=== PATIENT | female | born 1985 | race Caucasian/White ===

== ENCOUNTER 2016-09-12 10:32 | Day surgery (SDC) | payer MEDICAID ==
[2016-09-12] VITALS (28 sets, daily range): BP systolic 103–131; BP diastolic 59–79; PULSE 76–105; RESP 10–24; TEMP 97.8–98.8; O2SAT 95–100; Ht 175.3 cm; Wt 103.0 kg
[~2016-09-12] VITALS: Ht 175.3 cm; Wt 103.0 kg
[~2016-09-12 10:32] MED LIST: ALPR1TAB2 PO; BUSP10TA3 PO; CARI350T26 PO; ETON68IM3 IL; HYDR25TA PO; LIDOCAINE 1% (10mg/ml) 2ml SDV INJ ONE; LR 1,000 ML IV SCH; METF500T4 PO; VENL-68 PO; VENL-69 PO; ZOLP10TA2 PO
--- OUTSIDE RECORDS SUMMARY | 2016-09-12 10:35 | XMS REPORT | Continuity of Care Document ---
Author Author [facility] Organization [facility] Address Unknown Phone Unavailable Support Name Relationship Address Phone JANET MAC MD Caregiver [address] [place] [address] [place] [address] Unavailable KEVIN ORTIZ MD Caregiver [address] [place] [address] Unavailable TOMEKA GREEN Next Of Kin [address], [place] [address] Insurance Providers Guarantor Fidelia Pierson Address [address] [place] [address] Email [email or web address] Payer [facility] Community Plan Policy Number [id number] Subscriber's Name TerrenceelianaFidelia Judi Relationship 18 Self Effective Date 16 Expiration Date 16 Advance Directives Directive Response Recorded Date/Time Ordered Resuscitation Status Full Code 07/07/16 1:22pm Resuscitation Documents on File No 07/08/16 8:54am DPOA for Healthcare Only No 07/08/16 8:54am Living Will No 07/08/16 8:54am Problems No problem information available. Medications Current Home Medications Medication Dose Units Route Directions Days Qty Instructions Start Date Alprazolam (Xanax) 1 Mg Tablet 1 Mg Oral Twice A Day as needed for Anxiety 07/07/16 Buspirone Hcl 10 Mg Tablet 1 Tab Oral Six Times A Day 180 07/07/16 Etonogestrel (Nexplanon) 68 Mg Implant 68 Mg Implant 07/07/16 Venlafaxine Hcl (Venlafaxine Hcl Er) 75 Mg Cap.er.24h 1 Cap Oral Three Times A Day 15 07/07/16 Zolpidem Tartrate 10 Mg Tablet 1 Tab Oral Bedtime 30 07/07/16 Social History Social History Problem Response Recorded Date/Time Onset Date Status Reason for Hospitalization COLONOSCOPY 07/08/2016 12:49pm Not Applicable Not Applicable Chewing Tobacco Status No 07/08/2016 8:59am Not Applicable Not Applicable Hx Substance Use No 07/08/2016 8:59am Not Applicable Not Applicable Hx Alcohol Use No 07/08/2016 8:59am Not Applicable Not Applicable Has the pt used tobacco in the last 12 months No 07/08/2016 8:59am Not Applicable Not Applicable Query Response Start Date Stop Date Smoking Status Former smoker Hospital Discharge Instructions Instructions: Care Instructions: I was in the hospital because (patient own words): COLONOSOPY Discharge Diet: Resume previous diet Discharge Activity: Restricted today, as tolerated tomorrow. Follow Up Appointments: None Pending Lab / Results: No Pending Lab Expected Signs/Symptoms: None Notify Physician If: Severe abdominal pain. During Business Hours:: Please call the physician's office at [phone] and choose option 2. After Business Hours:: Please call [phone] and have the buttermilk drier operator page Dr. Mac. Pain Management/Treatment: N/A Wound/Incision Care: N/A Condition at time of discharge: Good Plan of Care Discharge Date 07/08/16 1:34pm Instructions/Education Provided [facility] [place] Prescriptions See Medication Section Functional Status Query Response Date Recorded Ability to complete ADL's impeded by No change July 08, 2016 8:54am Allergies, Adverse Reactions, Alerts Allergen Type Severity Reaction Status Last Updated No Known Drug Allergies Allergy Unknown Active 07/08/16 Immunizations Query Response on File Recorded Date/Time Hx Influenza Vaccination Y MAR 2016 07/08/16 8:59am Hx Pneumococcal Vaccination No 07/08/16 8:59am Hx Influenza Vaccination Y MAR 2016 07/08/16 8:59am Vital Signs Acute Vital Signs Vital Response Date/Time Temperature (Fahrenheit) 98.5 deg F (96.8 - 99.1) 07/08/2016 12:30pm Temperature (Calculated Celsius) 36.93952 degrees C (36.0 - 37.3) 07/08/2016 12:30pm Temperature Source Oral 07/08/2016 12:30pm Pulse Rate (adult) 68 bpm (60 - 100) 07/08/2016 1:01pm Respiratory Rate 16 breaths/min (10 - 20) 07/08/2016 1:01pm O2 Sat by Pulse Oximetry 94 % (90 - 100) 07/08/2016 1:01pm Oxygen Delivery Method Room Air 07/08/2016 1:01pm Oxygen Flow Rate 5.00 L/min 07/08/2016 12:30pm Blood Pressure 108/61 mm Hg 07/08/2016 1:01pm Blood Pressure Source Automatic Cuff 07/08/2016 1:01pm Height (Feet) 5 feet 07/08/2016 8:39am Height (Inches) 9.00 inches 07/08/2016 8:39am Weight (Kilograms) 97.000 kg 07/08/2016 8:39am Body Mass Index (BMI) 31.6 07/08/2016 8:39am Results No known relevant diagnostic tests, laboratory data and/or discharge summary. Procedures Procedure Status Date Provider(s) Colonoscopy Completed 07/08/16 JANET MAC MD Encounters Encounter Location Arrival/Admit Date Discharge/Depart Date Attending Provider Departed [facility] 07/08/16 8:23am 07/08/16 1: 34pm JANET MAC MD
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
[2016-09-12] MEDS ORDERED: BUPIVACAINE 0.25% (2.5mg/ml) INJ 30ml SDV ONE (11:50)
[2016-09-12] MEDS ORDERED: SALINE FLUSH 10ml SYRINGE ONE (11:50)
[2016-09-12] MEDS: MIDAZOLAM 2mg/2ml INJECTION IV PRN ×2 (11:59→12:07)
--- NOTE | 2016-09-12 12:23 | ANESPREOP ---
Anesthesia Record Date and Time DATE: 09/12/16 TIME: 12:21 Pre-Op Diagnosis chronic cholecystitis Proposed Surgical Procedure ROBOTIC LAP MEHDI Allergies: Coded Allergies: No Known Drug Allergies (Verified Allergy, Unknown, 09/12/16) Ht/Wt/BMI Height: 5 ' 9.00 " Weight: 97.800 kg BMI: 31.8 kg/m2 Vital Signs Date Time Temp Pulse Resp B/P Pulse Ox O2 Delivery O2 Flow Rate FiO2 09/12/16 12:15 79 13 122/61 98 Room Air 09/12/16 11:21 98.8 Medications Inpatient Medications Current Medications Medications (Trade) Dose Ordered Sig/Rusty Start Time Stop Time Status Last Admin Dose Admin Lactated Ringer's (Lactated Ringers) 1,000 ml @ 50 mls/hr Q20H 09/12/16 07:00 09/12/16 11:49 50 MLS/HR Midazolam HCl (Versed) VERSED 1-2 MG IV PRN ANXIETY PRN PRN 09/12/16 11:45 09/12/16 12:07 1 MG Alprazolam (Xanax) 1 Mg Tablet, 1 MG PO BID PRN for ANXIETY, (Reported) Last Taken: on Unknown Date & Time Buspirone HCl (Buspirone HCl) 10 Mg Tablet, 1 TAB PO 6XD, (Reported) Last Taken: on 09/11/16 0800 Carisoprodol (Carisoprodol) 350 Mg Tablet, 1 TAB PO DAILY PRN for MUSCLE PAIN, (Reported) Last Taken: on Unknown Date & Time Etonogestrel (Nexplanon) 68 Mg Implant, 68 MG IL, (Reported) Last Taken: on Unknown Date & Time Hydrochlorothiazide (Hydrochlorothiazide ) 25 Mg Tablet, 1 TAB PO DAILY, (Reported) Last Taken: on 09/11/16 0800 Metformin HCl (Metformin HCl) 500 Mg Tablet, 1 TAB PO DAILY, (Reported) Last Taken: on 09/11/16 0800 Venlafaxine HCl (Venlafaxine HCl ER) 75 Mg Cap.er.24h, 1 CAP PO TID, (Reported) Last Taken: on 09/11/16 0800 Venlafaxine HCl (Venlafaxine HCl ER) 150 Mg Cap.er.24h, 1 TAB PO DAILY, (Reported) Last Taken: on 09/11/16 0800 Zolpidem Tartrate (Ambien) 10 Mg Tablet, 10 MG PO HS, (Reported) Take 1 tablet, by mouth, 1 time a day (at BEDTIME). Last Taken: on 09/11/16 2200 Currently on Beta Gene: No Medical/Surgical History Anesthesia PMH: Reports: Anxiety, Depression, Obesity, Reflux, Denies: * Diabetes, Anesthesia Reactions (NO AIRWAY ISSUES), Arthritis, Cancer, Clotting Problems, Glaucoma, Malignant Hyperthermia, Renal Disease, Sleep Apnea, Thyroid Disease Smoking Status: Never smoker Has pt. smoked today?: No # of Packs per Day: 1 # of Years: 13 Use Chewing Tobacco?: No Second Hand Exposure: No Substance Use Type: does not use Alcohol Intake: none HX of Last Menstrual Period: UNKNOWN Past Surgical History Orthopedic Surgeries: Yes - R ANKLE REPAIR Abdominal Surgeries: Genitourinary Surgeries: Cardiac Surgeries: Endocrine Surgeries: Reproductive Surgeries: Yes - LAPAROSCOPY Neurological Surgeries: Ear Surgeries: Nose Surgeries: Throat Surgeries: Other Surgeries: Yes - R BREAST CYST REMOVAL,COLONOSCOPY Anesthesia Adverse Reactions: FOUND none Hx of Motion Sickness: No Pertinent Findings Test 09/12/16 10:48 Urine Test Negative (NEGATIVE) EKG Rhythm: Sinus Rhythm Physical Exam Respiratory: Bilat breath sounds equal, Lungs clear Cardiovascular: FOUND Regular rate, rhythm, FOUND No murmur Airway Assessment Mallampati Score: II TMD: 2 Fingerbreadths Neck Extension: Fair Overall Assessment: No Airway Concerns ASA: 2 Plan Anesthesia Plan: GETA Discussion Discussed risks/options/alternatives of anesthesia and questions answered. Patient consents. Nursing pain assessment noted. Present: Spouse Attestation Statement Prior to the delivery of any anesthetic medication, I examined the patient, developed the plan, obtained the patient's consent and discussed the risk and benefits of the procedure with the patient/guardian. JESUS HESS CRNA Sep 12, 2016 12:23
[2016-09-12] MEDS ORDERED: ROCURONIUM 50mg/5ml INJECTION IV ONE ×3 (12:29→14:51)
[2016-09-12] MEDS ORDERED: PROPOFOL 200mg 20 ML IV ONE ×2 (12:29→15:24)
[2016-09-12] MEDS ORDERED: LIDOCAINE 2% (20mg/ml) 5ml PF SDV ONE (12:29)
[2016-09-12] MEDS ORDERED: FENTANYL 250mcg/5ml INJECTION ONE (12:30)
[2016-09-12] MEDS ORDERED: DESFLURANE 240 ML LIQUID IH ONE (12:40)
[2016-09-12] MEDS ORDERED: CEFAZOLIN 1 GRAM INJECTION IV ONE (12:45)
[2016-09-12] MEDS ORDERED: ONDANSETRON 4mg/2ml INJECTION ONE (12:53)
[2016-09-12] MEDS ORDERED: GLYCOPYRROLATE 0.4mg/2ml INJECTION ONE (12:53)
[2016-09-12] MEDS ORDERED: IOHEXOL 300 MG/ML 50ml INJECTION ONE (14:30)
[2016-09-12] MEDS ORDERED: HYDROMORPHONE 2mg/ml INJECTION ONE (14:55)
--- NOTE | 2016-09-12 15:04 | DI ---
Indication: ITS.REASON: ROBOTIC MEHDI PROCEDURE: RF CHOLANGIOGRAM OPERATIVE: Comparison: None Findings: 3 fluoroscopic spot images are submitted from an intraoperative cholangiogram. Images demonstrate injection of contrast into the cystic duct with filling of the common duct and intrahepatic biliary tree. No discrete filling defects are identified. Contrast flows into the duodenum. Impression: Intraoperative fluoroscopy as above. Please refer to the dictated operative note for further details. Fluoroscopy time is 19.7 seconds. Fluoroscopy dose is 416 mRad. .
[2016-09-12] MEDS ORDERED: SUGAMMADEX 200 MG/2 ML INJECTION IV ONE (15:09)
[2016-09-12] MEDS ORDERED: HYDROMORPHONE 2mg/ml INJECTION IV PRN (15:45)
[2016-09-12] MEDS ORDERED: ONDANSETRON 4mg/2ml INJECTION IV PRN ×2 (15:45→16:15)
--- NOTE | 2016-09-12 16:06 | GSPOSTPROC ---
Immediate Operative Note DATE: 09/12/16 TIME: 16:04 Postop Diagnosis: Chronic cholecystitis Surgical Procedure: Other (Multiport robotic laparoscopic cholecystectomy) Surgeon: Brandi ASA: 2 JANET AMC MD Sep 12, 2016 16:06
[2016-09-12] MEDS ORDERED: PROMETHAZINE 25 MG INJECTION IV PRN (16:15)
--- NOTE | 2016-09-12 16:22 | ANESPO ---
Post-Op Note Date 09/12/16 Time: 16:21 Status Pt Participated in Evaluation: Pt participated in person Vital Signs Date Time Temp Pulse Resp B/P Pulse Ox O2 Delivery O2 Flow Rate FiO2 09/12/16 16:11 20 09/12/16 16:04 98.3 105 116/73 100 Mask 6.00 Respiratory Function: Airway patent Telemetry Pattern: SR Mental Status: Alert/oriented Pain Level Intensity: 4 Hydration: IV infusing Complications during Recovery None apparent Follow-Up Instructions Instructions Per Surgeon BENJAMIN BELL KITCHEN AND COUNTER WORKER Sep 12, 2016 16:22
--- NOTE | 2016-09-12 16:45 | NUR ---
ARRIVAL PT TO ROOM 132 PER CART. PT TRANSFERRED SELF FROM CART TO BED. VS STABLE 4 LAP SITES COVERED BY BANDAIDS, 1 COVERED AT UMBILICUS WITH FOAM TAPE, AND DRAIN SITE COVERED BY FOAM TAPE. SOME SHADOWING NOTED BUT CIRCLED BY PACU STAFF. PT RATES PAIN AT 8/10 IN ABD AND HEAD. PRN MORPHINE AND IBUPROFEN TO BE GIVEN. PT RESTING IN BED WITH ALARM. CALL LIGHT WITHIN REACH. WILL CONTINUE TO MONITOR.
[2016-09-12] MEDS: MORPHINE SULFATE 10 MG SYRINGE IV PRN (16:59)
[2016-09-12] MEDS: IBUPROFEN 200 MG TABLET PO PRN (17:00)
[2016-09-12] MEDS ORDERED: ALPRAZOLAM 1 MG TABLET PO PRN (18:00)
--- NOTE | 2016-09-12 18:26 | NUR ---
STATUS PT A/O X3. PT HAS YET TO GET UP, DENIES NEED TO URINATE AT THIS TIME. PAIN IS CONTROLLED, NAUSEA CONTROLLED. PRN PAIN MEDICATIONS AND PRN ZOFRAN GIVEN DOCUMENTED. PT TOLERATING WATER AND CRACKERS AT THIS TIME. DENIES NEED FOR XANAX BUT MADE PT AWARE THAT IT IS AVAILABLE IF NEEDED. VS STABLE. BED ALARM ON. PT RESTING IN BED. WILL CONTINUE TO MONITOR.
[2016-09-12] MEDS: OXYCODONE I.R. 5 MG TABLET PO PRN ×2 (18:47→21:56)
[2016-09-12] MEDS: LR 1,000 ML IV SCH (19:03)
[2016-09-12] MEDS: ACETAMINOPHEN 500 MG TABLET PO PRN (21:13)
[2016-09-13] VITALS: BP 122/70; PULSE 84; RESP 18; TEMP 98.8; O2SAT 95
[2016-09-13] MEDS: MORPHINE SULFATE 10 MG SYRINGE IV PRN ×3 (00:20→13:20)
[2016-09-13] MEDS: OXYCODONE I.R. 5 MG TABLET PO PRN ×6 (01:18→18:03)
[2016-09-13 04:42] VITALS: BP 102/63; PULSE 73; RESP 14; O2SAT 93
[2016-09-13] MEDS: LR 1,000 ML IV SCH ×2 (05:26→09:53)
--- NOTE | 2016-09-13 06:59 | NUR ---
PRN: Pt c/o increased anxiety. Pt requesting PRN Med to help with anxiety. Pt states she has a history of anxiety and she is "scared to fall asleep." PRN Xanax administered as charted. Notified oncoming RNCarlton.
--- NOTE | 2016-09-13 07:54 | NUR ---
SHIFT SUMMARY 1899 Report received in SBAR. All cares assumed. Assessment complete. See flowsheet. Pt is pleasant, alert et oriented. Noted drainage around MUSA drain to RMQ, serous sang. Will cont to empty et monitor. 194 Pt Pain 9/10 Patria 5 mg 2 tabs PO. Will cont to monitor 2256 Patria 5 mg 2 tabs PO for pain scale 10/10. See EMAR for follow up. 0020 Morphine 3 mg IV for pain 10/10. Pt gown et linens wet from leaking around MUSA drain. Pt cleaned disposable pad to area. Will cont to monitor. 0218 Patria 5 mg 2 tabs PO pain 9/10. 0248 Follow up pain scale pt states her pain is 8/10 and so she doesn't feel that she needs anything. 8 is the low end of pt pain scale. 0538 Patria 5 mg 2 tabs PO pain 9/10. 0700 Report given in SBAR. All cares resigned.
[2016-09-13] MEDS ORDERED: HYDROCHLOROTHIAZIDE 25 MG TABLET PO SCH (08:00)
[2016-09-13 08:23] VITALS: BP 100/64; PULSE 75; RESP 16; TEMP 97; O2SAT 95
[2016-09-13] MEDS ORDERED: VENLAFAXINE XR 150 MG CAPSULE PO SCH (09:00)
--- NOTE | 2016-09-13 10:58 | NUR ---
CM CM IN TO VISIT WITH PT. SHE IS ALERT AND ORIENTED. SHE WAS WITNESSED BY THIS CM TO AMBULATE WITH STAND BY ASSIST. HER SPUYES IS PRESENT. PT PLANS TO RETURN HOME. SHE DENIES DC NEEDS. HER LACE SCORE IS 1. NO FURTHER INTERVENTION NEEDED. SHE IS GIVEN CM CONTACT INFORMATION. Addendum: 09/13/16 at 1059 by SAL FERNANDEZ RN Amended: Links added.
[2016-09-13 11:41] VITALS: BP 102/62; PULSE 87; RESP 18; TEMP 96.5; O2SAT 100
[2016-09-13] MEDS: IBUPROFEN 200 MG TABLET PO PRN (11:52)
--- NOTE | 2016-09-13 12:51 | OPNOTEF ---
DATE OF OPERATION 09/12/2016 PREOPERATIVE DIAGNOSIS Chronic cholecystitis and cholelithiasis. POSTOPERATIVE DIAGNOSIS Chronic cholecystitis and cholelithiasis. OPERATION Multiport robotic laparoscopic cholecystectomy with intraoperative cholangiograms. SURGEON Renato Paz MD [employer] Jax Cooley MD ANESTHESIA General. ASA CLASS 2 FINDINGS The gallbladder appeared be to chronically inflamed. There were a lot of adhesions around the outside surface of the gallbladder. The gallbladder contained multiple large gallstones. The liver appeared normal. Intraoperative cholangiograms performed at the time of operation appeared normal. DESCRIPTION OF OPERATION The patient did have injectable indocyanine green dye administered intravenously preoperatively. The patient was placed in the supine position on the operating table. General anesthesia was satisfactorily induced. The abdomen was prepped and draped in a routine sterile fashion. Bupivacaine 0.25% without epinephrine was infiltrated into the skin and underlying tissue at an infraumbilical incision site. An infraumbilical incision was made. A Veress needle was inserted into the peritoneal cavity through the incision. Pneumoperitoneum was established with carbon dioxide. The Veress needle was removed. A 12-mm da Héctor camera port was placed at the infraumbilical incision. A 12-mm, 30 degree da Héctor laparoscope was inserted at the infraumbilical port. The skin and underlying structures at the abdominal wall were infiltrated with bupivacaine at a port site at the left upper quadrant of the abdomen at the midclavicular line. An incision was made at this site and an 8-mm da Héctor instrument port was placed at this incision. The skin and underlying abdominal wall structures were infiltrated with bupivacaine at another incision site at the left side of the abdomen. An incision was made at this site and an [employer] administrative assistant data entry port was placed at this incision. The skin and underlying abdominal wall structures were infiltrated with bupivacaine at a port site at the right upper quadrant of the abdomen. An incision was made at this area, and an 8-mm da Héctor instrument port was placed at this incision. The skin and underlying abdominal wall structures were infiltrated with bupivacaine at another port site at a more lateral location at the right side of the abdomen. An incision was made at this site and another 8-mm da Héctor instrument port was placed at this incision. The patient was placed in reverse Trendelenburg position. The right side of the table was tilted up. The da Héctor robotic system was brought up to the operating table. The da Héctor robotic system was docked to the camera port and instrument ports. The da Héctor 12-mm, 30-degree laparoscope was inserted at the camera port. The [place] bipolar forceps was inserted at the 8-mm instrument port at the left upper quadrant of the abdomen associated with instrument arm #1. A Cadiere forceps was inserted at the 8-mm instrument port at the right upper quadrant of the abdomen associated with instrument arm #2. A Prograf forceps was inserted at the 8-mm instrument port at the right lateral location at the abdomen associated with instrument arm #1. These instruments were all placed into a position adjacent to the gallbladder. The surgeon then went from the patient's side at the operating table to the surgeon console. The Prograf forceps with instrument arm #3 was used to grasp the fundus of the gallbladder and elevate the gallbladder and reflect the liver up superiorly towards the right diaphragm. The infundibulum of the gallbladder was grasped with the Cadiere forceps with instrument arm #2. Dissection was performed to separate the fatty tissue which was adherent to the outside surface of the gallbladder. There were a lot of adhesions binding fatty tissue to the outside surface of the gallbladder. These were divided to establish a dissection plane immediately on the outside surface of the gallbladder. Then dissection was performed to dissect all this tissue off the surface of the gallbladder from the fundus of the gallbladder down toward the infundibulum of the gallbladder. The patient did have a very long gallbladder which was over two times as long as usual. Tissue was dissected free of the outside surface of the fundus and then dissected free of the outside surface of the infundibulum of the gallbladder. The cystic artery was dissected out and identified during this time. Dissection was extended all the way down to the junction of the cystic duct and infundibulum of the gallbladder. The cystic duct was dissected out. Dr. Cooley was asked to come to the operating room at this time to help confirm the appearance of the anatomy and to assist with performing some intraoperative cholangiograms. Dr. Cooley did scrub in at this point and assist with the operation. The curved dissecting scissors was used to create an opening at the junction of the gallbladder and the cystic duct. Instrument arm #1 was then undocked from the port at the left upper quadrant of the abdomen. Dr. Cooley did introduce a cholangiogram catheter through this port at the left upper quadrant of the abdomen and cannulated the cystic duct with this catheter. The da Héctor robotic system was then undocked from the camera port. This did allow a C-arm to be brought in from the left side of the operating table to perform intraoperative cholangiograms. Intraoperative cholangiograms were performed with the use of the C-arm. The intraoperative cholangiograms were reviewed during this time that they were being performed. The intraoperative cholangiograms appeared normal. There was good free flow of contrast material from the common duct into the duodenum. There were no filling defects anywhere within the biliary tree. The intraoperative cholangiograms had a normal appearance. The cystic duct was decannulated. The intraoperative cholangiogram catheter was removed. The da Héctor robotic system was docked to the camera port again. Instrument arm #1 was docked to the instrument port at the left upper quadrant of the abdomen. The entire infundibulum of the gallbladder had been dissected free of the gallbladder bed prior to the time that the cystic duct was dissected out and the intraoperative cholangiograms were performed. The only two structures remaining at the hepatocystic triangle were the cystic duct and the cystic artery. The hepatocystic triangle had been cleared of all fatty and fibrous tissue until the only two structures remaining were the cystic duct and the cystic artery. In addition to this, the gallbladder had been dissected out of the gallbladder bed at least custodial up the gallbladder bed so that the entire infundibulum of the gallbladder was dissected out of the gallbladder bed and only the fundus remained attached to the gallbladder bed. Two Hem-o-candace clips were applied to the cystic duct proximal to the opening which had been created at the junction of the cystic duct in the gallbladder. Another Hem-o-Candace clip was applied across the infundibulum of the gallbladder adjacent to the cystic duct. The cystic duct was divided between Hem-o-candace clips with curved dissecting scissors. Two of the Hem-o-candace clips were left in place on the cystic duct stump. Two of the Hem-o-candace clips were then applied to the cystic artery. The cystic artery was divided between Hem-o-candace clips with the monopolar curved scissors. The monopolar curved scissors were then used to dissect the fundus of the gallbladder out of the gallbladder bed. This was the only portion of the gallbladder bed which remained attached to the gallbladder bed yet at this time. Tissue was coagulated with the monopolar curved scissors as the fundus of the gallbladder was dissected out of the gallbladder bed to maintain hemostasis. The gallbladder was completely dissected out of the gallbladder bed. Hemostasis was satisfactory at the gallbladder bed. Irrigation was performed at the gallbladder bed and hemostasis appeared to be satisfactory everywhere throughout the gallbladder bed. The gallbladder was placed in a position in the peritoneal cavity along the margin of the liver. The instruments were then removed from the instrument ports. The da Héctor laparoscope was removed from the camera port. The da Héctor robotic system was undocked from the ports. The surgeon left the surgeon console and returned back to the side of the patient at the operating table. The da Héctor 8.5 mm, 30-degree laparoscope was inserted at one of the right-sided da Héctor instrument ports. The specimen retrieval pouch was inserted at the camera port. The gallbladder was placed in the specimen retrieval pouch. The specimen retrieval pouch containing the gallbladder was brought out through the infraumbilical incision. The gallbladder was submitted as a specimen for study by the pathologist. Bupivacaine 0.25% without epinephrine was used to infiltrate skin and underlying abdominal wall structures at a site at the right upper quadrant of the abdomen at the right subcostal area. An incision was made at this site. A 5-mm port was placed at this site. A 19-Scottish round Bard channel drain was introduced through this 5-mm port into the peritoneal cavity. The 8.5-mm da Héctor laparoscope remained inserted at one of the right-sided da Héctor instrument ports. The Bard channel drain was placed into a subhepatic position at the gallbladder bed at this time. The 5-mm port at the right upper quadrant was removed leaving the Bard channel drain in place at the subhepatic space at the gallbladder bed. The 19-Scottish Bard channel drain was secured to the skin was with 2-0 Prolene suture. This did leave a drain at the gallbladder bed. The instrument ports were then all removed. Carbon dioxide was removed from the peritoneal cavity by desufflation. The fascial layer of the infraumbilical incision was closed with a series of simple interrupted stitches using #1 PDS suture. The skin margins were then closed at all the incisions with subcuticular stitches using 4-0 Vicryl suture. Benzoin and 1/4-inch wide Steri-Strips were applied to the incisions. Band-Aids were applied to the incisions. The patient tolerated the operation well. The patient was transferred from the operating room to the recovery room in satisfactory condition. BORA
--- NOTE | 2016-09-13 14:00 | NUR ---
Dressing change Dr. Paz in at this time. Dressing change done at this time around MUSA drain. Bandages removed from lap sites. Family present in room.
[2016-09-13] MEDS: ACETAMINOPHEN 500 MG TABLET PO PRN (15:04)
[2016-09-13 16:03] VITALS: BP 105/67; PULSE 85; RESP 16; TEMP 97.3; O2SAT 97
--- NOTE | 2016-09-13 16:21 | PNF ---
DATE 09/13/2016 POSTOP DAY #1 HISTORY The patient is doing well overall since her operation yesterday. She is tolerating her diet. The patient is using oxycodone at a maximum dosage every 3 hours. The patient is also using quite a bit of intravenous morphine yet for pain control. PHYSICAL EXAMINATION VITAL SIGNS: Temperature is 97 degrees axillary. Pulse is 75. Respiratory rate is 16. Blood pressure is 100/64. Oxygen saturation is 95% on room air. ABDOMEN: All the abdominal incisions look good. The abdomen is nondistended. The patient does have a Bard channel drain in place to the right side of hepatic space. The fluid in the drain bulb is serosanguineous. The fluid is not bile-stained. IMPRESSION Doing well following multiport robotic laparoscopic cholecystectomy with intraoperative cholangiograms on 09/12/2016. PLAN 1. Advance diet as tolerated. 2. Advance activity as tolerated. 3. Continue to transition the patient from intravenous to oral analgesics for pain control. I did encourage the patient to use ibuprofen and Tylenol in addition to the oxycodone. 4. Dismiss patient whenever she is able to completely transition from intravenous morphine to oral analgesics for pain control. I will remove the Bard channel drain prior to discharging the patient from the hospital. BORA
[2016-09-13] MEDS ORDERED: OXYC5TAB84 PO ×2 (18:15→18:19)
--- NOTE | 2016-09-13 18:44 | NUR ---
Discharge VS stable on RA. Pt discharged at this time via wheelchair through the ER entrance in the [facility]. Prescription for oxycodone was given to Pts family to take to preferred pharmacy. Copy placed in the chart. Gauze and foam tape in place of MUSA drain incision site, MUSA drain removed prior to discharge by Dr. Paz. C/D/I. Discharge packet and instructions were given to Pt and gone over with Pt and family that were present in room. This RN discussed medications, activity, restrictions, and diet. IV catheter DC'd prior to discharge, catheter tip in place.
== END 2016-09-13 18:39 | disposition home or self-care (01) ==
LOC: SCU 10:32 → SRG 10:33 → SCU 09-13 18:39
PROVIDERS: ATTEND Surgery
DX: K80.10 Calculus of gallbladder with chronic cholecystitis without obstruction (principal); K82.8 Other specified diseases of gallbladder; G47.00 Insomnia, unspecified; F32.9 Major depressive disorder, single episode, unspecified; F41.9 Anxiety disorder, unspecified; Z79.899 Other long term (current) drug therapy
CPT/HCPCS: 47563; 74300; 81025; J0690; J1170; J2250; J2405; J2704; J3010; J7120; Q9967; S0020; S2900